=== PATIENT | female | born 2000 | race Caucasian/White ===

== ENCOUNTER 2021-01-08 12:42 | Emergency (ER) | payer OTHER, SELFPAY ==
[2021-01-08 12:43] VITALS: BP 135/76; PULSE 101; RESP 18; TEMP 36.6; O2SAT 97; BMI 31.8
[2021-01-08 13:57] VITALS: O2SAT 99
--- NOTE | 2021-01-08 13:57 | ED.VIS.DYS ---
HPI History of Present Illness Chief Complaint: Shortness of Breath Informant: patient Onset/Context/Timing Onset: Weeks Context: gradual Timing: Intermittent Quality: Negative for Dyspnea on exertion, Orthopnea, PND and Wheezing Current Severity: Mild Maximum Severity: Mild Associated Symptoms Negative for cough, fever, chills, yellow sputum or green sputum Chest Pain: Positive for Intermittent and Tightness; Negative for Pleuritic and Pressure Narrative Narrative: 20-year-old female past medical history of anxiety. States the last 2 weeks she has felt short of breath. No history of DVT or PE. No leg pain or swelling. No hemoptysis. No significant cough. Saw her primary care physician on Thursday had a Covid test that was negative. She denies any fever. Denies nausea vomiting or diarrhea. Denies melena. PE Risk Factors: Negative for Cancer, OCP + Smoking + > 35, Prior DVT or PE, Recent immobilization, Recent surgery and Recent travel Prior similar symptoms: No Recent Illness/Hospitalization: No PFSH PFSH Medical History Anxiety Home Medications alprazolam [Xanax] 0.5 mg PO BID PRN 01/08/21 [History Last Taken Unknown] escitalopram oxalate [Lexapro] 10 mg PO DAILY 01/08/21 [History Last Taken Unknown] Allergy/AdvReac Type Severity Reaction Status Date / Time No Known Allergies Allergy Verified 01/08/21 12:46 Social History Smoking Status: Never smoker ROS ROS ED ROS Narrative Short of breath. Review of Systems ROS Unobtainable: Denies due to encephalopathy Constitutional Constitutional ED: Denies fever(s) or sweats Eyes Eyes: Denies change in vision ENT ENT ED: Denies ear pain or sore throat Cardiovascular Cardiovascular: Denies chest pain Respiratory/Chest Respiratory/Chest: Reports dyspnea; Denies cough Gastrointestinal Gastrointestinal: Denies abdominal pain, constipation, diarrhea, nausea or vomiting Genitourinary Genitourinary ED: Denies dysuria or hematuria Musculoskeletal Musculoskeletal: Denies myalgias Integumentary Denies abscess or rash Neurologic Neurologic: Denies headache(s) Psychiatric Psychiatric: Denies depression Endocrine Endocrinology: Denies polyuria Hematologic/Lymphatic Hematologic/Lymphatic: Denies easy bruising Allergic/Immunologic Allergic/Immunologic ED: Denies urticaria EXAM Physical Exam Narrative Exam Narrative: Well-appearing young female. No acute distress. Vital signs stable afebrile. Pulse ox 97% on room air no signs hypoxia. HEENT exam normal. Neck nontender. No lymphadenopathy. No JVD. Lungs clear to auscultation bilaterally. Heart regular rate and rhythm no murmur. Rate about 90. Abdomen soft nontender normal bowel sounds no peritoneal signs. Patient moving all 4 extremities. Calves are nontender no edema or cords. Neurologically patient is awake and alert with no focal motor Const Vital Signs: 01/08/21 12:43 01/08/21 13:57 Temperature 97.9 F Temperature Source Temporal Pulse Rate 101 H Respiratory Rate 18 Respiratory Effort Normal Respiratory Depth Normal Respiratory Pattern Normal Blood Pressure 135/76 H Blood Pressure Mean 95 Pulse Ox 97 Oxygen Delivery Method Room Air Room Air Positive well nourished and well developed; Negative for obese, cachectic, contractures or unkempt General Appearance ED: well developed and NAD; Negative for unkempt, cachectic or contractures Nutritional Appearance: Negative for cachectic or obese HEENT Reports moist mucous membranes atraumatic; Negative for trauma or tenderness Eyes PERRL and EOMs intact bilaterally Neck no lymphadenopathy, supple, no meningeal signs and no JVD General: Negative for tenderness Resp normal respiratory effort and clear to auscultation bilaterally Auscultation: Negative for rales, rhonchi or wheezes Cardio regular rate, regular rhythm, S1 normal heart sound, S2 normal heart sound and no murmurs GI non-tender, non-distended and no masses Auscultation: normoactive bowel sounds Palpation: soft; Negative for tender, guarding or rebound tenderness present Back/Spine no CVA tenderness and normal to inspection General Back: Negative for CVA tenderness or tenderness Extremity normal to inspection General Extremety ED: Negative for edema or tenderness General Extremity: Negative for edema Neuro oriented x3 and CN's II-XII intact bilaterally Sensorium / Orientation: alert, oriented to person, oriented to place and oriented to time; Negative for orientation impaired, confused, lethargic or stuporous Motor Exam: strength 5/5 throughout Psych mental status grossly normal Appearance: Negative for unkempt Skin no wounds Lesions: no lesions Rashes: no rashes MDM MDM MDM Narrative Medical decision making narrative: Young female with subjective dyspnea. Normal exam. Normal pulse ox. Chest x-ray being obtained. Negative Covid at doctor's office. Also obtain EKG. Repeat exam patient doing well at 3:20 PM will be discharged home. We went over test results. Radiography Chest X-Ray - ED: 1 View, Read by ED Physician, Read by Radiologist, Normal, Heart, Lungs, Mediastinum, Bony Structures and No Acute Disease Diagnostic Testing: Radiology Impression Chest X-Ray 01/08/21 14:05 IMPRESSION: Normal x-ray examination of the chest. Electronically Signed: Alphonso Bowers MD at 14:26 EDT , Service support , Rhythm Strip Rhythm Strip: Sinus Rhythm Rate: 77 Ectopy: None EKG Initial EKG: Attestation: I personally reviewed and interpreted this EKG as follows: Interpretation: Sinus Rhythm and No Acute Injury Pattern Comments: Normal sinus rhythm rate of 77 no acute signs of [place] nor ischemia nor dysrhythmia. Prior EKG tracings: not available for review Prior: No Prior Discharge Plan Triage Chief Complaint: Shortness of Breath ED Provider: Harpreet Frazier Dx/Rx/DC Orders Clinical Impression: Acute dyspnea Instructions: ED Dyspnea Prescriptions: No Action alprazolam [Xanax] 0.5 mg Tablet 0.5 mg PO BID PRN (Reason: Anxiety) RF: 0 escitalopram oxalate [Lexapro] 10 mg Tablet 10 mg PO DAILY RF: 0 Primary Care Provider: Care Physician,No Primary Referrals: Mumtaz Solano MD [STAFF PHYSICIAN] - 1 Week if not improving Care Physician,No Primary [Primary Care Provider] - Activity Restrictions/Additional Instructions: Your chest x-ray and EKG were both normal today. Follow-up with your local primary care physician if not improving. Your exam is otherwise normal. Disposition Disposition: Home, Self Care
--- NOTE | 2021-01-08 14:02 | EKG12_ITS ---
Test Reason : SOB Blood Pressure : / mmHG Vent. Rate : 077 BPM Atrial Rate : 077 BPM P-R Int : 154 ms QRS Dur : 092 ms QT Int : 370 ms P-R-T Axes : 040 001 027 degrees QTc Int : 418 ms Normal sinus rhythm Normal ECG Confirmed by TAMARA REYES, LAUREL ([id number]), editorial intern REJI HOLGUIN ([id number]) on 01/10/2021 9:10:40 AM Referred By: MIKE Confirmed By:LAUREL MCDONALD MD
--- NOTE | 2021-01-08 14:05 | RAD_ITS ---
STUDY: X-RAY CHEST REASON FOR EXAM: Female, 20 years old. covid . Shortness of breath and chest tightness for 2 weeks. TECHNIQUE: COMPARISON: None. FINDINGS: The lungs are clear and expanded. There is no demonstrated pleural abnormality. Normal size heart. Normal mediastinum and julianne. Normal visualized pulmonary arteries. Normal visualized aortic arch and descending thoracic aorta. Normal visualized thoracic spine. Normal visualized ribs, clavicles, and shoulders. There is no demonstrated abnormality of the visualized soft tissue structures of the upper abdomen. RAD/Chest 1 View (Portable) IMPRESSION: Normal x-ray examination of the chest. Electronically Signed: Alphonso Bowers MD at 14:26 EDT , Service support ,
--- NOTE | 2021-01-08 14:31 | NURSING ---
NO OLD EKGS
[2021-01-08 15:24] VITALS: O2SAT 99
== END 2021-01-08 15:24 | disposition home or self-care (01) ==
PROVIDERS: Emergency Provider Emergency Medicine
DX: R06.00 Dyspnea, unspecified (principal); F41.9 Anxiety disorder, unspecified; Z79.899 Other long term (current) drug therapy
CPT/HCPCS: 71045; 93005; 99282